=== PATIENT | male | born 1985 | race Caucasian/White ===

== ENCOUNTER 2017-06-09 20:45 | Emergency (ER) | payer SELFPAY ==
[~2017-06-09] VITALS: Ht 182.9 cm; Wt 81.0 kg
[2017-06-09 20:49] VITALS: TEMP 36.5; Ht 182.9 cm; Wt 81.0 kg
[2017-06-09] MEDS ORDERED: IBUP-1050 PO (21:10)
[2017-06-09] MEDS ORDERED: PRED50TA PO (21:20)
--- NOTE | 2017-06-09 21:21 | EMERGENCY ROOM VISIT NOTE ---
ED Visit Note First contact with patient: 20:53 CHIEF COMPLAINT: Insect bite right wrist last evening Patient is a right-hand dominant 31-year-old white male who presents to emergency department for evaluation of redness, warmth and swelling on the volar aspect of the right wrist. He states that last evening around 10:00, he picked up some grass, and was bitten or stung by an unknown insect. Initially it was a small raised welt , with a small central puncture wound. Today at work , the area has become more red, swollen and is itchy. He took some ibuprofen and applied cool compresses to the area. He did not take any Benadryl. He denies any prior history of major allergic reactions to insect bites or stings in the past. The swelling has not extended proximally. It is not particularly painful. He denies any difficulty breathing or swallowing. No generalized skin rashes. REVIEW OF SYSTEMS: Review of systems as per HPI. All other systems reviewed were negative. At least 6 systems reviewed. PMH: Electronic medical records are reviewed and summarized as above/below. See Problem List. His tetanus is up-to-date. SOCIAL HISTORY: Patient lives at home. Positive tobacco and alcohol use. He is employed. PHYSICAL EXAM: Vital Signs: Reviewed Nurse's notes. CONSTITUTIONAL: The patient is a well-appearing 31-year-old white male is awake and alert and in no acute distress. INTEGUMENTARY: Examination of the patient's right arm, volar aspect show an area of erythema, swelling and slight increased warmth from the flexor crease, midway up the forearm. It is nontender to palpation. Bite site is noted, no stinger is visible in the center of the swollen area. The right upper extremity is neurovascularly intact. ED course: The patient was seen and evaluated as above. He was bit or stung by an unknown insect last evening. He has expected inflammatory changes around the area. There is no evidence for anaphylaxis. I do not suspect cellulitis. He was reassured. He was advised to continue to ice the area, take ibuprofen and Benadryl and was given a short course of oral prednisone and he can take if his symptoms are not improving. Medication reconciliation: I attest that I have personally reviewed the patient' s current medication list. Blood pressure screening: Patient was found to have a slightly elevated blood pressure due to circumstances. I do not believe that the patient requires hypertension monitoring. Problem List Surgical Problems: (1) History of excision of pilonidal cyst Status: Resolved Current/Historical Medications Scheduled Prednisone (Prednisone), 50 MG PO DAILY Scheduled PRN Ibuprofen (Advil), 600 MG PO Q6H PRN for Pain Allergies Coded Allergies: Promethazine (Verified Allergy, Unknown, UNKNOWN, 06/09/17) Vital Signs Date Time Temp Pulse Resp B/P (MAP) Pulse Ox O2 Delivery O2 Flow Rate FiO2 06/09/17 21:33 82 18 136/87 98 06/09/17 20:49 36.5 86 18 148/92 99 Room Air Departure Information Impression Primary Impression: Insect bites Prescriptions Prednisone (Prednisone) 50 Mg Tab 50 MG PO DAILY for 5 Days, #5 TAB Prov: Kamila Elliott PA 06/09/17 Referrals Brock Hair M.D. (PCP) Patient Instructions My [facility] Additional Instructions Prednisone 50mg: Once daily until the prescription is finished. It is best to take this earlier in the day as some patients note occasional difficulty falling asleep when taken in the late evening. Diphenhydramine(Benadryl) 25mg: use 25 to 50 mg as needed every six hours for swelling, itching, or hives. This medication is sedating and will cause drowsiness. Avoid alcohol, operating machinery or dangerous equipment, working on ladders or roofs, DRIVING, or situations where being under the influence may be dangerous. Cool compresses to the affected area. Continue current medications. Return to the emergency department for worsening of your rash, swelling of your face, lips, tongue, or throat, difficulty breathing, vomiting, or as needed. Follow-up with your primary care physician in 2-3 days for a recheck of your current condition. Problem Qualifiers Primary Impression: Insect bites Encounter type: initial encounter Qualified Codes: W57.XXXA - Bitten or stung by nonvenomous insect and other nonvenomous arthropods, initial encounter
[2017-06-09 21:33] VITALS: BP 136/87; PULSE 82; O2SAT 98
== END 2017-06-09 21:35 | disposition home or self-care (01) ==
LOC: C.EDB 20:47 → C.EDD 21:35
DX: S60.861A Insect bite (nonvenomous) of right wrist, initial encounter (principal); M25.431 Effusion, right wrist; W57.XXXA Bitten or stung by nonvenomous insect and other nonvenomous arthropods, initial encounter; F17.210 Nicotine dependence, cigarettes, uncomplicated